=== PATIENT | female | born 1975 | race African-American/Black ===

== ENCOUNTER 2017-09-26 05:52 | Inpatient (IN) ==
[2017-09-26] MEDS ORDERED: ceFAZolin 2,000 MG in PREMIX 1 EACH IV ONE (06:03)
[2017-09-26] MEDS ORDERED: FAMOTIDINE 20 MG/2 ML VIAL IV ONE (06:03)
[2017-09-26] MEDS ORDERED: CITRIC ACID/SODIUM CITRATE 30 ML UDCUP PO ONE (06:03)
[2017-09-26] MEDS ORDERED: diphenhydrAMINE 50 MG/1 ML VIAL IV PRN (06:05)
[2017-09-26] MEDS ORDERED: PROMETHAZINE 25 MG/1 ML VIAL IM ONE (06:05)
[2017-09-26] MEDS ORDERED: hydrOXYzine HCL 25 MG/1 ML VIAL IM PRN (06:05)
[2017-09-26] MEDS ORDERED: LACTATED RINGERS 1,000 ML IV PRN (06:05)
[2017-09-26] MEDS ORDERED: ePHEDrine 50 MG/ML AMP IV PRN (06:05)
[2017-09-26 06:25] LABS: Basophils # 0.1 10*3/uL (0.0-0.2); Basophils % 0.5 % (0.0-0.8); Eosinophils # 0.1 10*3/uL (0.0-0.87); Eosinophils % 1.2 % (0.00-10.9); Hematocrit 32.2 VOL% (35.7-47.0); Hemoglobin 10.2 GM/DL (12.0-16.0); Immature Granulocytes % 1.6 %; Immature Granulocytes Absolute 0.15 #; Lymphocytes # 2.3 10*3/uL (1.4-4.0); Lymphocytes % 24.5 % (21.3-54.2); Mean Corpuscular HGB Conc 31.7 GM/DL (32-36); Mean Corpuscular Hemoglobin 29 PG (27-34); Mean Corpuscular Volume 92.8 FL (87-102); Mean Platelet Volume 10.2 FL (9.6-12.0); Monocytes # 0.6 10*3/uL (0.11-0.8); Monocytes % 6.2 % (1.7-12.7); Neutrophils # 6.1 10*3/uL (1.4-7.4); Platelet Count 259 T/CUMM (130-400); Red Blood Count 3.47 MC/CUMM (3.8-5.5); Red Cell Distribution Width 13.7 % (9.3-17.3); White Blood Count 9.2 T/CUMM (4-12)
[2017-09-26] MEDS ORDERED: LACTATED RINGERS 1,000 ML IV SCH ×2 (06:30→09:30)
[2017-09-26] MEDS ORDERED: fentaNYL 2 MCG/ROPIV 0.2% EPID 150 ML EPIDURAL SCH (06:30)
[2017-09-26 06:44] LABS: INR 0.9; PT Patient Result 9.3 SECS; Partial Thromboplastin Time 24.5 SECS (0-40)
[2017-09-26 06:56] LABS: Albumin 2.7 G/DL (3.4-5.0); Bilirubin,Total 0.4 MG/DL (0.2-1.0); Calcium 8.4 MG/DL (8.5-10.1); Osmolality,Calculated 266.1 MOS/KG (273-304); Potassium 3.9 MMOL/L (3.5-5.1); Total Protein 6.8 G/DL (6.4-8.3)
[2017-09-26] MEDS ORDERED: OXYTOCIN/LR 20 UNIT/1,000 ML BAG IV ONE (07:10)
[2017-09-26] MEDS ORDERED: TISSUE ADHESIVE 1 EACH APPLICATOR TOP ONE (08:49)
[2017-09-26 08:57] LABS: Apearance,Urine CLEAR (Clear); Bacteria,Urine Occasional /HPF (Few); Bilirubin,Urine Negative (Negative); Blood, Urine Negative (Negative); Glucose,Urine (UA) Negative (Negative); Ketones,Urine Negative (Negative); Mucus,Urine Occasional /LPF (Occasional); Nitrite,Urine Negative (Negative); Protein,Urine Negative; RBC,Urine <1 /HPF (0-4); Urine Color Straw (Yellow); Urine Specific Gravity 1.009 (1.001-1.035); Urine Urobilinogen < 2.0 EU/DL (0.2-1.0)
[2017-09-26] MEDS ORDERED: MAGNESIUM HYDROXIDE SUSP 30 ML UDCUP PO PRN (09:03)
[2017-09-26] MEDS ORDERED: IBUPROFEN 800 MG TABLET PO PRN (09:03)
[2017-09-26] MEDS ORDERED: SIMETHICONE CHEW 80 MG TABLET PO PRN (09:03)
[2017-09-26] MEDS ORDERED: ONDANSETRON 4 MG/2 ML VIAL IV PRN (09:03)
[2017-09-26] MEDS ORDERED: ACETAMINOPHEN 325 MG TABLET PO PRN (09:03)
[2017-09-26] MEDS ORDERED: RHO(D) IMMUNE GLOBULIN 300 MCG SYRINGE IM ONE (09:03)
[2017-09-26 09:05] LABS: Barbiturates Screen,Urine Negative (Negative); Benzodiazepines Screen,Urine Negative (Negative); Cannabinoid Screen,Urine Negative (Negative); Opiate Screen,Urine Negative (Negative); Phencyclidine Screen,Urine Negative (Negative)
[2017-09-26] MEDS ORDERED: KETOROLAC 30 MG/1 ML VIAL IM PRN (09:06)
[2017-09-26] MEDS ORDERED: PROPOFOL 200 MG/20 ML VIAL IV ONE (09:26)
[2017-09-26] MEDS ORDERED: fentaNYL 100 MCG/2 ML VIAL ONE (09:26)
[2017-09-26] MEDS ORDERED: ONDANSETRON 4 MG/2 ML VIAL ONE (09:26)
[2017-09-26] MEDS ORDERED: LIDOCAINE MPF 2% /EPI 20 ML VIAL ONE (09:27)
[2017-09-26] MEDS ORDERED: PHENYLEPHRINE 1 MG/10 ML SYRINGE IV ONE (09:27)
[2017-09-26] MEDS ORDERED: GLYCOPYRROLATE 0.4 MG/2 ML VIAL ONE (09:27)
[2017-09-26] MEDS ORDERED: ceFAZolin 1,000 MG in SYRINGE 1 EACH IV SCH (09:30)
[2017-09-26] MEDS ORDERED: NALOXONE 0.4 MG/ML VIAL IV PRN (09:37)
[2017-09-26] MEDS: MORPHINE PCA 30 MG/30 ML SYRINGE IV SCH ×2 (10:38→20:09)
[2017-09-26] MEDS: ceFAZolin 1,000 MG in SYRINGE 1 EACH IV SCH ×2 (16:11→23:50)
[2017-09-26 21:27] LABS: Basophils % 0.2 % (0.0-0.8); Eosinophils # 0.1 10*3/uL (0.0-0.87); Eosinophils % 0.6 % (0.00-10.9); Immature Granulocytes % 0.9 %; Immature Granulocytes Absolute 0.11 #; Lymphocytes # 1.8 10*3/uL (1.4-4.0); Lymphocytes % 14.6 % (21.3-54.2); Mean Corpuscular HGB Conc 33.5 GM/DL (32-36); Mean Corpuscular Hemoglobin 31 PG (27-34); Mean Corpuscular Volume 91.3 FL (87-102); Mean Platelet Volume 10.2 FL (9.6-12.0); Monocytes # 0.8 10*3/uL (0.11-0.8); Monocytes % 6.2 % (1.7-12.7); Neutrophils # 9.4 10*3/uL (1.4-7.4); Neutrophils % 77.5 % (38.7-73.9); Platelet Count 177 T/CUMM (130-400); Red Blood Count 2.42 MC/CUMM (3.8-5.5); Red Cell Distribution Width 13.5 % (9.3-17.3); White Blood Count 12.1 T/CUMM (4-12)
[2017-09-26 21:45] LABS: Hematocrit 22.1 VOL% (35.7-47.0)
[2017-09-26 21:46] LABS: Hemoglobin 7.4 GM/DL (12.0-16.0)
[2017-09-26] MEDS: DOCUSATE SODIUM 100 MG CAPSULE PO SCH (22:15)
[2017-09-26] MEDS ORDERED: BENZOCAINE/MENTHOL LOZENGE 18/BOX PO PRN (22:29)
[2017-09-26] MEDS: diphenhydrAMINE 50 MG/1 ML VIAL IV PRN (22:41)
[2017-09-26] MEDS: LACTATED RINGERS 1,000 ML IV SCH (22:41)
[2017-09-27] MEDS ORDERED: ACETAMINOPHEN/CODEINE 300-30 MG TABLET PO PRN ×2 (01:22)
[2017-09-27] MEDS: diphenhydrAMINE 50 MG/1 ML VIAL IV PRN ×2 (03:59→06:45)
[2017-09-27] MEDS ORDERED: EPINEPHrine 1 MG/ML VIAL SUBCUT ONE (04:48)
[2017-09-27] MEDS ORDERED: methylPREDNISolone SOD SUC 125 MG/2 ML VIAL IV ONE (04:51)
[2017-09-27 05:07] LABS: Basophils % 0.2 % (0.0-0.8); Eosinophils # 0.1 10*3/uL (0.0-0.87); Eosinophils % 0.8 % (0.00-10.9); Hematocrit 21.6 VOL% (35.7-47.0); Hemoglobin 7.1 GM/DL (12.0-16.0); Immature Granulocytes % 0.9 %; Immature Granulocytes Absolute 0.09 #; Lymphocytes # 1.7 10*3/uL (1.4-4.0); Lymphocytes % 16.7 % (21.3-54.2); Mean Corpuscular HGB Conc 32.9 GM/DL (32-36); Mean Corpuscular Hemoglobin 30 PG (27-34); Mean Corpuscular Volume 90.8 FL (87-102); Mean Platelet Volume 10.3 FL (9.6-12.0); Monocytes # 0.7 10*3/uL (0.11-0.8); Monocytes % 6.5 % (1.7-12.7); Neutrophils # 7.7 10*3/uL (1.4-7.4); Neutrophils % 74.9 % (38.7-73.9); Platelet Count 207 T/CUMM (130-400); Red Blood Count 2.38 MC/CUMM (3.8-5.5); Red Cell Distribution Width 13.5 % (9.3-17.3); White Blood Count 10.3 T/CUMM (4-12)
[2017-09-27] MEDS ORDERED: IBUPROFEN 800 MG TABLET PO PRN (05:37)
[2017-09-27] MEDS: LACTATED RINGERS 1,000 ML IV SCH (06:12)
[2017-09-27] MEDS: DOCUSATE SODIUM 100 MG CAPSULE PO SCH ×2 (10:38→21:30)
[2017-09-27] MEDS: MULTIVITAMIN (PRENATAL) TABLET PO SCH (10:38)
[2017-09-27] MEDS ORDERED: diphenhydrAMINE 50 MG/1 ML VIAL IV PRN (11:11)
[2017-09-27] MEDS: methylPREDNISolone SOD SUC 40 MG/1 ML VIAL IV SCH ×2 (14:05→21:30)
[2017-09-28 08:09] VITALS: BP 136/91
[2017-09-28] MEDS: DOCUSATE SODIUM 100 MG CAPSULE PO SCH (09:43)
[2017-09-28] MEDS: MULTIVITAMIN (PRENATAL) TABLET PO SCH (09:44)
== END 2017-09-28 13:30 | disposition home or self-care (01) | DRG 766 ==
LOC: N.LDOUT 05:52 → N.LD 05:54 → N.OB 12:35
PROVIDERS: ADMIT Obstetrics & Gynecology; ATTEND Obstetrics & Gynecology